=== PATIENT | female | born 1985 | race Asian ===

== ENCOUNTER 2019-01-15 09:22 | Inpatient (IN) | payer BC ==
[2019-01-15 09:51] VITALS: BMI 27.1
--- NOTE | 2019-01-15 10:24 | PDOC.LDHP ---
Labor and Delivery H&P HPI: Time of eval: 10:10-10:20 Location: Triage bed B CC: Contractions at 38 weeks HPI: 33 year old Ab1(1st trimester) at 38 weeks with CTX. Seen yesterday in office by Dr. Malone and found to be 1-2 cm. No LOF, no VB, no CHEW, no other issues. Normal movement. Contractions are every 3 minutes and started this morning. No trauma or acute events within 24 hours. 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 Current medications: pre- vitamins Previous surgical history: other (2007 Brain tumor removal) Allergies/Adverse Reactions: Allergies Allergy/AdvReac Type Severity Reaction Status Date / Time No Known Allergies Allergy Unverified 01/15/19 09:43 - Physical Exam Vital signs reviewed and normal: yes (BP: 127/86 Temp 99.2 Pulse: 80 O2:99%) General: NAD Abdomen: gravid (EFW by Anil's) Extremeties: no edema FHT: category 1 (Rate 150s) Point Place contractions every: 5 minutes - Vaginal Exam cm dilated: 4 (BOWI) Effacement: 90% Station: 0 - Assessment L&D Assessment: term patient in labor (Early term, latent phase, but with cervical change. Patient states she is GBS negative.) - Plan Plan: admit to L&D, labor augmentation if indicated, informed consent obtained, anesthesia consult for pain management, other (Notify Dr. Murillo of arrival and admission. Await spontaneous progress.)
[2019-01-15] MEDS ORDERED: Lidocaine 1% (PF) 30 ML VIAL SC PRN (10:32)
[2019-01-15] MEDS ORDERED: Ondansetron PF 4 MG/2 ML Vial IVP PRN ×2 (10:32→11:48)
[2019-01-15] MEDS ORDERED: Butorphanol Tartrate 1 MG/ML VIAL SLOW IVP PRN (10:32)
[2019-01-15] MEDS ORDERED: HYDROcodone/Acetaminophen 5/325 mg Tablet PO PRN ×2 (10:32)
[2019-01-15] MEDS ORDERED: NS / Oxytocin 40 units/1000ml 1,000 ML IV PRN (10:32)
[2019-01-15] MEDS ORDERED: Ibuprofen 800 MG TAB PO PRN (10:32)
[2019-01-15] MEDS ORDERED: Promethazine HCl 25 MG/ML VIAL IM PRN ×2 (10:32→11:48)
[2019-01-15] MEDS: Lactated Ringer's 1,000 ML IV SCH ×2 (10:45→12:07)
[2019-01-15 11:01] LABS: Mean Corpuscular HGB CONC 33.2 g/dL (32.0-36.0); Mean Corpuscular Hemoglobin 29.1 pg (27.0-31.0); Mean Corpuscular Volume 87.5 fL (78.0-98.0); Mean Platelet Volume 7.8 fL (7.4-10.4); Platelet Count 199 thou/uL (130-400); RBC Distribution Width 12.8 % (11.5-14.5); Red Blood Cell (RBC) Count 4.47 mill/uL (4.20-5.40); White Blood Cell (WBC) Count 10.9 thou/uL (4.8-10.8)
[2019-01-15] MEDS ORDERED: Fentanyl 4 mcg/Bup 0.1% Cadd 100 ML ONE (11:17)
[2019-01-15] MEDS ORDERED: NS w/ Oxytocin 10 units 500 ML ONE (11:18)
[2019-01-15 11:45] LABS: HIV (1/2) Antibody/Antigen Non-Reactive (NonReactive); HIV 1/2 INDEX 0.15 S/CO (<1.00); Syphilis Antibody Nonreactive (Nonreactive); Syphilis Antibody Index 0.04 S/CO (<1.00 Non-Reactive)
[2019-01-15] MEDS ORDERED: Naloxone HCl 0.4 mg/ml Vial IVP PRN ×2 (11:48)
[2019-01-15] MEDS ORDERED: ePHEDrine/0.9% NaCl/PF SYRINGE 50 mg/10 ml SLOW IVP PRN (11:48)
[2019-01-15] MEDS ORDERED: Lactated Ringer's 500 ML IV PRN (11:48)
[2019-01-15] MEDS ORDERED: diphenhydrAMINE 50 MG/ML VIAL IVP PRN (11:48)
[2019-01-15] MEDS ORDERED: Acetaminophen 325 MG TAB PO PRN (11:48)
[2019-01-15] MEDS ORDERED: Fentanyl 4 mcg/Bupivacaine 0.1% Cassette 100 ML EPIDURAL SCH (12:00)
[2019-01-15] MEDS ORDERED: Communication Order-Pharmacy FS SCH (12:00)
[2019-01-15 12:51] LABS: HBSAg Index 3705.03 S/CO (0-0.99)
[2019-01-15 12:58] LABS: Hep B Surf Ag Reflx Confirmation S/CO (NonReactive)
--- NOTE | 2019-01-15 15:34 | PDOC.OPDEL ---
OB Operative/Delivery Note Delivery Dr/Surgeon: Faisal Pre-Delivery Diagnosis: active labor Procedure/Post Delivery Dx: spontaneous vaginal delivery Weeks gestation: 38 Anesthesia: epidural - Findings A - 1 min: 9 - 5 min: 9 - Additional Findings/Plan Placenta delivered: spontaneous Repaired Obstetrical Laceration: 2nd degree Estimated blood loss: 300 ml Compilations/Other Findings: none Post delivery plan: routine recovery
[2019-01-15] MEDS ORDERED: diphenhydrAMINE 25 MG CAP PO PRN (15:37)
[2019-01-15] MEDS ORDERED: Lanolin Ointment 7 GM TUBE TOP PRN (15:37)
[2019-01-15] MEDS ORDERED: Bisacodyl 10 MG SUPP PR PRN (15:37)
[2019-01-15] MEDS ORDERED: Misoprostol 200 MCG TAB VAG PRN (15:37)
[2019-01-15] MEDS ORDERED: traMADol HCl 50 MG TAB PO PRN (15:37)
[2019-01-15] MEDS ORDERED: Milk Of Magnesia 30 ML UDCUP PO PRN (15:37)
[2019-01-15] MEDS ORDERED: Adacel (T-DAP) 0.5 ML SYRINGE IM ONE (15:37)
[2019-01-15] MEDS ORDERED: Preparation H Ointment 28 GM TUBE PR PRN (15:37)
[2019-01-15] MEDS ORDERED: Benzocaine-Menthol 82.5 ML CAN TOP PRN (15:37)
[2019-01-15] MEDS ORDERED: NS / Oxytocin 40 units/1000ml 1,000 ML IV SCH (15:45)
[2019-01-15] MEDS: Ferrous Sulfate 325 MG TAB PO SCH (18:28)
[2019-01-15] MEDS: Ibuprofen 800 MG TAB PO SCH (21:05)
[2019-01-15] MEDS: Docusate Calcium (SURFAK) 240 MG CAP PO SCH (21:06)
[2019-01-16] MEDS: Ibuprofen 800 MG TAB PO SCH ×2 (06:24→14:17)
[2019-01-16] MEDS ORDERED: Prenatal Vitamin 1 TAB PO SCH (09:00)
[2019-01-16 09:21] VITALS: BP 129/66; TEMP 97.7
[2019-01-16] MEDS: Docusate Calcium (SURFAK) 240 MG CAP PO SCH (10:03)
[2019-01-16] MEDS: Ferrous Sulfate 325 MG TAB PO SCH ×2 (10:03→16:28)
== END 2019-01-16 18:25 | disposition home or self-care (01) | DRG 807 ==
LOC: L&D/OP 09:22 → L&D 11:02 → 3SW 17:58
PROVIDERS: ADMIT Obstetrics & Gynecology; ATTEND Obstetrics & Gynecology
PROC: 10E0XZZ Delivery of Products of Conception, External Approach (ICD-10-PCS; principal; 2019-01-16)
PROC: 0KQM0ZZ Repair Perineum Muscle, Open Approach (ICD-10-PCS; 2019-01-16)
DX: O70.1 Second degree perineal laceration during delivery (principal); Z37.0 Single live birth; Z3A.38 38 weeks gestation of pregnancy
CPT/HCPCS: 36415; 85027; 86780; 86850; 86900; 86901; 87340; 87389; 90715; J2590